=== PATIENT | female | born 2000 | race Caucasian/White ===

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

== ENCOUNTER 2022-06-07 10:50 | Outpatient (CLI) | payer MEDICAID, SELFPAY ==
[2022-06-07 11:00] VITALS: BMI 41.1
[2022-06-07 11:06] VITALS: BP 110/67; PULSE 116
[2022-06-07 11:21] VITALS: BP 103/58; PULSE 88
[2022-06-07 11:36] VITALS: BP 128/58; PULSE 93
[2022-06-07 11:51] VITALS: BP 111/59; PULSE 84
[2022-06-07 12:25] VITALS: BP 111/59; PULSE 84; RESP 18
== END 2022-06-07 12:20 | disposition home or self-care (01) ==
LOC: OPOB 10:51 → OBGYN 10:52
PROVIDERS: PCP Family Medicine; Visit Provider Family Medicine
DX: O26.899 Other specified pregnancy related conditions, unspecified trimester (principal); Z3A.00 Weeks of gestation of pregnancy not specified
CPT/HCPCS: 59025; 99211

== ENCOUNTER 2022-06-24 04:21 | Inpatient (IN) | payer MEDICAID, SELFPAY ==
[2022-06-24] VITALS (108 sets, daily range): BP systolic 89–134; BP diastolic 44–79; PULSE 73–120; RESP 16–20; TEMP 35.8–38.3; O2SAT 88–100; BMI 41.5
[2022-06-24] MEDS: lactated ringers 1,000 ML 999 ML IV ×2 (04:16→05:57)
[2022-06-24] MEDS: fentaNYL 50 mcg/mL INJ 2mL IVP (04:18)
[2022-06-24 04:36] LABS: Basophils % 0.2 %; Eosinophils # 0.1 10^3/uL (0.0-0.8); Eosinophils % 0.8 %; Hematocrit 37.2 % (37.0-47.0); Hemoglobin 12.4 g/dL (11.5-15.3); Lymphocytes # 2.2 10^3/uL (1.5-6.5); Lymphocytes % 16.8 %; Mean Corpuscular HGB Conc 33.3 g/dL (30.0-36.0); Mean Corpuscular Volume 87.1 fl (81-99); Mean Platelet Volume 10.9 fL (7.4-10.4); Monocytes # 1.1 10^3/uL (0.2-0.9); Monocytes % 8.5 %; Neutrophils # 9.45 10^3/uL (1.8-8.0); Neutrophils % 73.1 %; Nucleated Red Blood Cells % 0 %; Platelet Count 204 10^3/cmm (130-400); Red Blood Count 4.27 10^6/uL (4.1-5.3); White Blood Count 12.9 10^3/uL (4.5-13.0)
[2022-06-24] MEDS: vancomycin 1,500 MG/300 ML PIGGYBACK 150 MG IV (04:38)
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
--- NOTE | 2022-06-24 06:01 | ANES.PROC ---
Anesthesia Procedures Procedure/Date: 06/24/22 Epidural: Time Out Performed: Yes Consents Signed: Procedure Consent and NPO Consent Consent: requested by attending/covering physician, from patient, risks and benefits reviewed and patient agrees to proceed Lumbar Level: L3-L4 Epidural position: sitting Epidural procedure: sterile prep of area (betadine), 1% lidocaine to numb the area (3ml), 18 g needle, negative for paresthesia passed, neg for paresthesia, test dose given (2% lidocaine PF with epi 1:200,000 PF 3ml neg and 2ml given), 0.2% Ropivacaine bolus ml (5ml), placed PCEA, no systemic response, sterile dressing applied, L.U.D. no apparent complications and 0.2% Ropiavacaine @ mls/hr (13ml/hr)
[2022-06-24] MEDS: dextrose 5%-lactated ringers 1,000 ML 125 ML IV (06:15)
[2022-06-24] MEDS: hyDROXYzine 25 mg Capsule 50 MG PO (06:20)
[2022-06-24] MEDS: ondansetron 2 mg/ML SDV 2 mL 4 MG IVP (06:38)
--- NOTE | 2022-06-24 12:34 | PM.OPHPUD ---
Labor & Delivery H&P Update Date of Procedure: June 24, 2022 Date H&P Performed: 06/22/22 Admission Diagnosis: 21-year-old 2 para 0-0-1-0 at 37 weeks estimated gestational age presenting in active labor Preop diagnosis: labor Planned procedure: Spontaneous vaginal delivery Other information: The patient's was remarkable for starting her care at the [facility] in [place]. Her lab work was remarkable for having B+ blood with antibody screen to be negative her infectious disease panel was notable for being positive for chlamydia. She was tested for cure and found to be negative at 36 weeks. Her glucose screen was 132. A 3-hour glucose screen was negative. She was GBS positive. Due to her being penicillin allergic she was tested found to be chlamydia resistant. vancomycin was used for prophylaxis. She been having contractions the day prior to arriving at the hospital. They became more severe through the night and she elected to have the hospital for further evaluation. She was found to be 5 m dilated.
--- NOTE | 2022-06-24 12:39 | P.PCNOB_ITS ---
Delivery Note: Date of delivery: June 24, 2022 Pre-delivery diagnoses: 1. 21-year-old 2 para 0-0-1-0 2. GBS positive 3. Chlamydia positive during . Tested negative at 36 weeks Post- delivery diagnoses: Status post spontaneous vaginal delivery Procedure: Spontaneous vaginal delivery Delivering Physician: Trent Pitts Estimated blood loss (mL): 100 Pre-Delivery Course: The patient presented to the hospital in active labor. Was placed on GBS prophylaxis with vancomycin. An epidural was placed. Amniotomy was performed. She progressed to complete without difficulty Delivery: DELIVERY: The patient progressed to complete without difficulty. She delivered a male with a weight of 7 pounds 9 ounces with Apgars of 10, 10. The baby was delivered from the JACKELINE position and placed on the mother's abdomen. The cord was then clamped and cut 1 minute after delivery. There was no nuchal cord. There was no meconium. The placenta and 3 vessel cord were delivered intact shortly thereafter. The perineum and vaginal vault were carefully examined. Superficial lacerations were noted that did not require repair.. Both the mother and the baby were in stable condition. Post-Delivery Status: Good History History History 1 Term Miscarriages/Ectopic Living Children A&P Assessment and plan (1) 37 weeks gestation of : I Anticipate routine care. Status: Acute (2) Spontaneous vaginal delivery: Status: Acute (3) Positive GBS test: Status: Acute Coding Level of Care Code Acute Thermodynamics Teacher for Chg Fwd Diagnoses 37 weeks gestation of Z3A.37 Spontaneous vaginal delivery O80 Positive GBS test B95.1
[2022-06-24] MEDS: oxytocin 30 UNIT/500 ML BAG 999 UNIT IV (13:00)
[2022-06-24] MEDS: lanolin oint 7 gm 1 APPLIC TOPICAL (14:11)
[2022-06-24] MEDS: ibuprofen 800 mg tablet PO ×2 (14:11→20:56)
[2022-06-24] MEDS: benzocaine-menthol 78 gm Canister 1 SPRAY TOPICAL (14:13)
[2022-06-25 00:24] LABS: Hematocrit 32.6 % (37.0-47.0); Mean Corpuscular HGB Conc 33.7 g/dL (30.0-36.0); Mean Corpuscular Hemoglobin 28.6 pg (28.0-34.0); Mean Corpuscular Volume 84.9 fl (81-99); Mean Platelet Volume 10.9 fL (7.4-10.4); Platelet Count 199 10^3/cmm (130-400); Red Blood Count 3.84 10^6/uL (4.1-5.3); Red Cell Distribution Width 12.9 % (12.1-15.1); White Blood Count 13.5 10^3/uL (4.5-13.0)
[2022-06-25 00:47] VITALS: BP 108/74; PULSE 85; RESP 17
[2022-06-25 04:46] VITALS: BP 100/59; PULSE 79; RESP 18; TEMP 36.8; O2SAT 99
[2022-06-25] MEDS: ibuprofen 800 mg tablet PO (08:45)
[2022-06-25] MEDS: prenatal vitamin Capsule 1 CAP PO (08:45)
[2022-06-25] MEDS: docusate sodium 100 mg Capsule PO (08:45)
--- NOTE | 2022-06-25 09:49 | P.DS_ITS ---
Discharge Providers SURVEYING TECHNICIAN Date of Admission: 06/24/22 04:21 Date of Discharge: 06/25/22 Attending Provider at Admission: Trent Pitts MD Attending Provider at Discharge: Trent Pitts MD Primary Care Provider: Trent Pitts Diagnoses at Discharge Discharge Diagnosis (1) 37 weeks gestation of : Status: Acute (2) Spontaneous vaginal delivery: Status: Acute (3) Positive GBS test: Status: Acute Reason for Visit Reason for Visit: CONTRACTIONS Hospital Course Hospital Course The patient presented to the hospital in active labor. An epidural was placed. An amniotomy was performed. The patient progressed to complete. She had an unremarkable delivery. Her course was unremarkable. Her bleeding was within normal limits. Her pain was well controlled. She breast-fed well. Information Peripartum Data: Delivery Method: Vaginal Physical Exam Narrative: The patient is alert. She appears comfortable. Her heart has a regular rate and rhythm with no murmurs appreciated. Lungs are clear to auscultation bilaterally. Her fundus is firm and below the umbilicus. Urinary Catheter Management: [place]: Cath Placed During This Visit: yes Urinary Catheter Date of Insertion: 06/24/22 Urinary Catheter Time of Insertion: 06:45 History History History 1 Term Miscarriages/Ectopic Living Children Discharge Data Studies Completed and Pending Laboratory Results WBC 13.5 10^3/uL (4.5-13.0) H 06/25/22 00:15 RBC 3.84 10^6/uL (4.1-5.3) L 06/25/22 00:15 Hgb 11.0 g/dL (11.5-15.3) L 06/25/22 00:15 Hct 32.6 % (37.0-47.0) L 06/25/22 00:15 MCV 84.9 fl (81-99) 06/25/22 00:15 MCH 28.6 pg (28.0-34.0) 06/25/22 00:15 MCHC 33.7 g/dL (30.0-36.0) 06/25/22 00:15 RDW 12.9 % (12.1-15.1) 06/25/22 00:15 Plt Count 199 10^3/cmm (130-400) 06/25/22 00:15 MPV 10.9 fL (7.4-10.4) H 06/25/22 00:15 Neut % (Auto) 73.1 % 06/24/22 04:15 Lymph % (Auto) 16.8 % 06/24/22 04:15 [place] % (Auto) 8.5 % 06/24/22 04:15 Eos % (Auto) 0.8 % 06/24/22 04:15 Baso % (Auto) 0.2 % 06/24/22 04:15 Neut # (Auto) 9.45 10^3/uL (1.8-8.0) H 06/24/22 04:15 Lymph # (Auto) 2.2 10^3/uL (1.5-6.5) 06/24/22 04:15 [place] # (Auto) 1.1 10^3/uL (0.2-0.9) H 06/24/22 04:15 Eos # (Auto) 0.1 10^3/uL (0.0-0.8) 06/24/22 04:15 Baso # (Auto) 0.0 10^3/uL (0.0-0.1) 06/24/22 04:15 Nucleated RBC % (auto) 0 % 06/24/22 04:15 Nucleated RBCs # 0.0 /100WBC 06/24/22 04:15 Vitals Last Vital Signs Temp 98.3 F 06/25/22 04:46 Pulse 79 06/25/22 04:46 Resp 18 06/25/22 04:46 BP 100/59 06/25/22 04:46 Pulse Ox 99 06/25/22 04:46 O2 Del Method 06/25/22 04:46 Discharge Plan Discharge Patient Disposition: Home Condition: Stable Prescriptions: New ibuprofen 800 mg Tablet 800 mg PO TID Qty: 45 0RF Continued prenat.vits,guru,ujf-xnwk-kxygm Tablet 1 tab PO DAILY Discontinued hydroxyzine HCl 50 mg tablet 50 mg PO DAILY PRN doxycycline hyclate 100 mg tablet 100 mg PO BID Qty: 28 0RF promethazine 25 mg suppository 25 mg NM Q6H PRN (Reason: nausea and vomiting) Qty: 10 0RF Rx Instructions: Use one suppository every 6 hours as needed for nausea and vomiting metoclopramide HCl [Reglan] 10 mg tablet 10 mg PO Q6H PRN (Reason: nausea and vomiting) Qty: 120 0RF Rx Instructions: Take 1 tablet before meals and at bedtime Discharge Orders: Discharge Order (Routine); Ordered 06/25/22 Ordered By: Trent Pitts Referrals: Trent Pitts MD [Physician] - 6 Weeks Discharge Diet: Advance as tolerated Discharge Activity: Limit activity as instructed Patient Instructions: Depression (DC), Bleeding (DC), Preeclampsia and Eclampsia After Delivery (GEN), OB Discharge Report, OB Food/Drug Interaction Guide, OB Care at Home, Opioid Safety, OB Vaginal Deliveries Discharge Attestations SURVEYING TECHNICIAN Time Spent in Discharge Care*: less than 30 min Coding Level of Care Code Acute Marine Habitat Resource Specialist for Chg Fwd Diagnoses 37 weeks gestation of Z3A.37 Spontaneous vaginal delivery O80 Positive GBS test B95.1
[2022-06-25 10:00] VITALS: BP 100/65; PULSE 76; RESP 17; TEMP 36.8; O2SAT 96
--- NOTE | 2022-06-25 14:06 | ANE.PACU2 ---
Inpatient post-anesthesia follow up: Airway intact: Yes Vital signs: Temperature 98.2 F Pulse Rate 76 Respiratory Rate 17 Blood Pressure 100/65 Pulse Oximetry 96 Oxygen Delivery Me thod Room Air Oxygen Flow Rate Fraction of Inspir ed Oxygen Hydration adequate: Yes Nausea and vomiting: No Pain level: 1 Mental status: Baseline Additional Comments: EHR review
[2022-06-25 14:35] VITALS: BP 101/63; PULSE 71; RESP 18; TEMP 36.6; TEMP 36.7; O2SAT 98
[2022-06-25 14:56] VITALS: BP 101/63; PULSE 71; RESP 18; TEMP 36.7; O2SAT 98
== END 2022-06-25 14:40 | disposition home or self-care (01) | DRG 806 ==
LOC: OPOB 04:21 → OBGYN 04:21
PROVIDERS: Admitting Provider Family Medicine; PCP Family Medicine; Visit Provider Family Medicine
DX: O99.824 Streptococcus B carrier state complicating childbirth (principal); F33.9 Major depressive disorder, recurrent, unspecified; Z37.0 Single live birth; O99.344 Other mental disorders complicating childbirth; O99.214 Obesity complicating childbirth; Z3A.37 37 weeks gestation of pregnancy; F41.1 Generalized anxiety disorder; Z88.0 Allergy status to penicillin
CPT/HCPCS: 12345; 36415; 51702; 59025; 59409; 85025; 85027; 99211; J2405; J2795; J3010; J3370

== ENCOUNTER 2022-10-17 05:31 | Day surgery (SDC) | payer MEDICAID, SELFPAY ==
[2022-10-17] VITALS (10 sets, daily range): BP systolic 97–133; BP diastolic 63–92; PULSE 52–78; RESP 16–20; TEMP 36.1–36.4; O2SAT 94–100
--- NOTE | 2022-10-17 06:10 | W.PM.OPSUD ---
Surgery/Procedure H&P Update DATE OF PROCEDURE: October 17, 2022 DATE H&P PERFORMED: 09/20/22 H&P UPDATE INFORMATION: I have reviewed H&P completed within last 30 days, I have examined patient prior to procedure and Changes to prior documentation as noted here (Patient has been focusing on higher protein lower fat content) CHANGES TO PREVIOUS DOCUMENTATION: And is down to 220 pounds PREOP DIAGNOSIS: Symptomatic cholelithiasis PRIMARY INDICATION FOR PROCEDURE: Symptomatic cholelithiasis PLANNED PROCEDURE: Operation Date: 10/17/22 07:00 Proposed Procedures p Laparoscopic Cholecystectomy 21027,K82.9(Not Applicable) - Philipp Lam MD
[2022-10-17] MEDS: sodium chloride 0.9% 1,000 ML 30 ML IV (06:22)
[2022-10-17] MEDS: acetaminophen 1,000 MG/100 ML PIGGYBACK 400 MG IV (06:22)
[2022-10-17 06:25] LABS: OR HCG Qualitative Urine Negative (Negative)
[2022-10-17] MEDS: heparin 5,000 unit/mL INJ 1 mL 3000 UNIT SUBCUT (06:36)
[2022-10-17] MEDS: diphenhydrAMINE 50 mg/mL SDV 1mL 12.5 MG IVP (06:42)
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
[2022-10-17] MEDS: ciprofloxacin 400 MG/200 ML PREMIX 200 MG IV (07:00)
[2022-10-17] MEDS: lidocaine 1% INJ 20 mL SUBCUT (07:25)
--- NOTE | 2022-10-17 08:48 | PM.OP ---
Operative Report Date of procedure: October 17, 2022 Pre-op diagnosis: Preop Diagnosis Symptomatic cholelithiasis Post-op diagnosis: The same Procedure done: Laparoscopic cholecystectomy Specimens removed/disposition: Gallbladder and contents Surgeon: Philipp Lam MD Drencher: Surgical tena Borjas Circulating nurse Jackie Schroeder Anesthesia: General (quality improvement coordinator Brandon Oleary) Estimated blood loss (mL): 5 Procedure: Patient was identified in the holding area and taken back to the operative suite, placed in supine position intubated by anesthesia . Time-out was done verifying the patient's name/date of /planned procedure and destination after the procedure, all were in agreement. SCDs confirmed to be functioning, preoperative antibiotics administered per protocol, and beta chrissie protocol was confirmed. Patient was appropriately secured to the table, footboard was applied to the OR table, before prep and drape anesthesia was asked to tilt the table back and forth to make sure that the patient is appropriately secured and she was. Prep and drape of the abdomen was done under the usual sterile technique, followed by that supraumbilical skin incision,skin incision was done by a 15 blade knife, and stay sutures were applied to the fascia and Pearson trocar technique was used to enter the abdominal without injuring any abdominal viscera, started by low flow gas insufflation followed by a high flow, started with a 10 mm laparoscope and under direct vision. An additional 5 mm trocar was inserted under direct visualization. Gallbladder showed chronic cholecystitis and Fatty Liver On an attempt to position the patient, the bed did not respond and after many attempts we decided that a new bed will be brought to the room and the patient will be transferred to a newer bed.At This point gas was allowed to be deflate and the skin incisions were closed by skin nguyễn and sterile dressing was applied. Patient was then safely transferred to a new bed, reprep and drape was done under the usual sterile technique. Using the previous incisions Pearson trocar was introduced followed by epigastric 5 mm tipped balloon trocar. there was no evidence of any injuries, the scope then switched to a 30? ,10 millimeter scope and under direct visualization 5 millimeter trocar was inserted in the epigastric region followed by two 5 mm trocars were inserted in the right upper quadrant that was done after injection of local lidocaine 2% at all incision sites. patient was then positioned in the head up and tilted to the left. Ratcheted forceps were introduced into the lateral most 5mm port and was applied unto the fundus of the gallbladder cephalad and using Bullet forceps the infundibulum of the gallbladder was retracted laterally. Using [place] forceps then L-hook cautery to dissect the peritoneum overlying the Calot's triangle which was then opened medially and laterally until the cystic duct and the cystic artery were skeletonized. Dissection was carried along the body of the gallbladder and after ensuring critical view of safety was identfied. Cystic duct and cystic artery where seen connected to the gallbladder. Clips were applied on the cystic duct towards the common bile duct 1 towards the gallbladder then divided is in sharp scissors, 2 clips were then applied onto the cystic artery and 1 towards the gallbladder and divided by sharp scissors. Dissection was then carried along of the gallbladder from the gallbladder fossa using cautery as well as sharp dissection with heat energy. The gallbladder then was dissected out from the gallbladder fossa totally , cholecystectomy was then achieved and was placed in an Endo Catch bag and then retrieved from the Pearson trocar site under direct visualization using a 5 mm 30? scope through the epigastric trocar, specimen was then passed to the circulating nurse to go for permanent pathology,irrigation and hemostasis was done to the gallbladder fossa after hemostasis was secured, final survey laparoscopy was done that showed no injuries. Suction irrigation was obtained The supraumbilical fascial defect was then closed using interrupted number one PDS sutures using a fascial closure device ;Ian Chris under direct visualization following that Gas was allowed to deflate,Trocars were then taken out under direct vision there was no evidence of bleeding. Specimen was passed to the circulating nurse for permanent pathology. No drains were placed and the supraumbilical incision as well as all trocar sites were closed by 3/0 Vicryl followed by skin nguyễn to approximate the skin edges of the incisions , dressing was applied in the form of surical glue and the patient patient got extubated and was taken to recovery area in a stable condition. Count of sponges,needles and instruments were completed at the end of the procedure I was present for the whole entire procedure.
[2022-10-17] MEDS: fentaNYL 50 mcg/mL INJ 2mL IVP ×2 (09:19→09:25)
[2022-10-17] MEDS: ondansetron 2 mg/ML SDV 2 mL 4 MG IVP (09:19)
[2022-10-17] MEDS: HYDROcodone-acetaminophen 5-325 mg Tablet 1 TAB PO (09:45)
--- NOTE | 2022-10-17 16:22 | ANE.PACU2 ---
Inpatient post-anesthesia follow up: Airway intact: Yes Vital signs: Temperature 97.4 F Pulse Rate 64 Respiratory Rate 18 Blood Pressure 123/71 Pulse Oximetry 95 Oxygen Delivery Me thod Room Air Oxygen Flow Rate 7 Fraction of Inspir ed Oxygen Hydration adequate: Yes Nausea and vomiting: No Pain level: 1 Mental status: Baseline
== END 2022-10-17 11:05 | disposition home or self-care (01) ==
PROVIDERS: Anesthesiology; PCP Family Medicine; Visit Provider Surgery
PROC: 0FT44ZZ Resection of Gallbladder, Percutaneous Endoscopic Approach (ICD-10-PCS; CPT 47562; principal; 2022-10-17 07:00)
DX: K81.1 Chronic cholecystitis (principal); K76.0 Fatty (change of) liver, not elsewhere classified; E66.01 Morbid (severe) obesity due to excess calories; Z68.38 Body mass index [BMI] 38.0-38.9, adult; F41.1 Generalized anxiety disorder
CPT/HCPCS: 47562; 81025; 84703; 88304; J0131; J0744; J1100; J1170; J1200; J1644; J2405; J2704; J2710; J3010; J3490; J7030

== ENCOUNTER 2023-11-22 15:51 | Outpatient (CLI) | payer MEDICAID, SELFPAY ==
[2023-11-22 15:51] VITALS: BMI 38.4
[2023-11-22 16:05] VITALS: BP 103/68; PULSE 90
[2023-11-22 16:15] VITALS: RESP 17
[2023-11-22] MEDS: ondansetron 4 MG Tablet PO (16:34)
[2023-11-22 17:15] LABS: Urine Appearance Hazy (CLEAR); Urine Color Straw (Yellow); pH Urine 6.5 (5-7)
[2023-11-22 17:16] LABS: Bilirubin Urine Neg (Negative); Blood Urine Neg (Negative); Glucose Urine UA Norm (Normal); Ketones Urine Negative (Negative); Leukocyte Esterase Urine Negative (Negative); Nitrate Urine Negative (Negative); Protein Urine Neg (Negative); Urobilinogen Urine Norm (Negative)
[2023-11-22 17:25] LABS: Add Urine Culture? No; Bacteria Urine TRACE /hpf; WBC Urine 0-4 /hpf (0-5)
[2023-11-22] MEDS: lactated ringers 1,000 ML 999 ML IV (17:49)
[2023-11-22] MEDS: promethazine 25 mg/mL SDV 1 mL IM (18:26)
[2023-11-22] MEDS: HYDROcodone-acetaminophen 5-325 mg Tablet 1 TAB PO (19:47)
--- NOTE | 2023-11-22 20:15 | PC.NURSE ---
Pt previously rating abdominal cramping pain 10/10.
[2023-11-22 21:00] VITALS: BP 105/70; PULSE 90; RESP 16
== END 2023-11-22 21:06 | disposition home or self-care (01) ==
LOC: OPOB 15:52 → OBGYN 15:53
PROVIDERS: PCP Family Medicine; Visit Provider Family Medicine
DX: O21.9 Vomiting of pregnancy, unspecified (principal); Z3A.00 Weeks of gestation of pregnancy not specified; R19.7 Diarrhea, unspecified
CPT/HCPCS: 36415; 81001; 96372; 99211; J2550; J7120; Q0162

== ENCOUNTER 2024-01-31 12:55 | Outpatient (CLI) | payer MEDICAID, SELFPAY ==
[2023-11-22 21:00] VITALS: PULSE 90; RESP 16
[2024-01-31 12:50] VITALS: BMI 31.0
[2024-01-31 13:04] VITALS: BP 109/66; PULSE 94
[2024-01-31 13:17] LABS: Add Urine Microscopic? NO; Charge for UA Resulting for Rev
[2024-01-31 13:19] VITALS: BP 108/66; PULSE 86
[2024-01-31 13:21] LABS: Bilirubin Urine Neg (Negative); Blood Urine Neg (Negative); Glucose Urine UA Norm (Normal); Ketones Urine Negative (Negative); Leukocyte Esterase Urine Negative (Negative); Nitrate Urine Negative (Negative); Protein Urine Neg (Negative); Specific Gravity, Urine 1.015 (1.005-1.030); Urine Appearance Clear (CLEAR); Urine Color Yellow (Yellow); Urobilinogen Urine Norm (Negative); pH Urine 6 (5-7)
[2024-01-31 13:31] LABS: Basophils % 0.2 %; Eosinophils # 0.1 10^3/uL (0.0-0.8); Hematocrit 33.7 % (36-47); Lymphocytes # 2.1 10^3/uL (0.8-4.8); Mean Corpuscular HGB Conc 33.8 g/dL (30-55); Mean Corpuscular Hemoglobin 28.9 pg (27-33); Mean Corpuscular Volume 85.3 fl (85-98); Mean Platelet Volume 10.2 fL (7.4-10.4); Monocytes # 0.8 10^3/uL (0.2-0.9); Monocytes % 7.3 %; Neutrophils # 8.33 10^3/uL (1.8-7.7); Neutrophils % 72.8 %; Nucleated Red Blood Cells % 0 %; Platelet Count 234 10^3/cmm (157-399); Red Blood Count 3.95 10^6/uL (3.85-5.65); Red Cell Distribution Width 12.8 % (12.1-15.1); White Blood Count 11.42 10^3/uL (3.29-11.43)
--- NOTE | 2024-01-31 13:35 | PC.NURSE ---
this nurse and Axel HERNANDEZ transferred pt via wheelchair to ER, pt AAOx 3
[2024-01-31 13:51] LABS: Alanine Aminotransferase < 5 U/L (0-33); Albumin Level 3.3 g/dL (3.5-5.2); Alkaline Phosphatase 134 U/L (35-105); Anion Gap 17.2 (5-19); Aspartate Amino Transferase 10 U/L (0-32); Blood Urea Nitrogen 5 mg/dL (6-20); Calcium 8.5 mg/dL (8.5-10.5); Carbon Dioxide 20 mmol/L (22-29); Chloride 104 mmol/L (98-107); Globulin 3.2 g/dL (1.3-4.6); Glomerular Filtration Rate 201.5 mL/min (90-130); Glucose 91 mg/dL (65-115); Osmolality Calculated 281 mOsm/kg (285-295); Potassium 4.2 mmol/L (3.5-5.1); Sodium 137 mmol/L (136-145); Total Bilirubin 0.2 mg/dL (0.15-1.2); Total Protein 6.5 g/dL (6.6-8.7); Uric Acid 3.5 mg/dL (2.4-5.7)
[2024-01-31 13:52] LABS: Lactate (Lactic Acid level) 0.8 mmol/L (0.5-2.2)
[2024-01-31 14:35] LABS: Urine Creatinine 29 mg/dL (28-217); Urine Protein Random 4 mg/dL
[2024-01-31 14:36] LABS: UPRO/UCREAT Ratio 0.14 mg/mg CR
== END 2024-01-31 13:35 ==
LOC: OPOB 12:56 → OBGYN 12:57 → OPOB 13:35 → OBGYN 16:31
PROVIDERS: PCP Family Medicine; Visit Provider Family Medicine
DX: O26.899 Other specified pregnancy related conditions, unspecified trimester (principal); Z3A.00 Weeks of gestation of pregnancy not specified; H54.7 Unspecified visual loss; R20.0 Anesthesia of skin
CPT/HCPCS: 36415; 59025; 80053; 81003; 82570; 83605; 84156; 84550; 85025; 99211

== ENCOUNTER 2024-01-31 13:37 | Emergency (ER) | payer MEDICAID, SELFPAY ==
[2024-01-31 13:40] VITALS: BP 107/62; PULSE 89; RESP 18; TEMP 36.9; O2SAT 97; BMI 31.0
--- NOTE | 2024-01-31 13:45 | XRR_ITS ---
PROCEDURE INFORMATION: Exam: XR Chest Exam date and time: 01/31/2024 2:14 PM Age: 23 years old Clinical indication: Shortness of breath; Additional info: CVA TECHNIQUE: Imaging protocol: Radiologic exam of the chest. Views: 1 view. COMPARISON: CR XR chest 1V portable [id number] 07/15/2021 8:10 AM FINDINGS: Lungs: Mild prominence of markings around the hilar region, particularly right infrahilar region. No consolidation. Pleural spaces: No pleural effusion or pneumothorax. Heart/Mediastinum: Mild accentuation of cardiomediastinal contours with AP portable technique, with borderline cardiac size. Compared with 2020 exam, cardiac silhouette and particularly left side appears more prominent, as do markings around the hilar region. Bones/joints: Visualized osseous structures show no acute abnormality. XR/XR chest 1V portable [id number] IMPRESSION: 1. Borderline cardiac size. 2. Mild increased markings around the hilar region, and particularly right infrahilar region. This could be associated with mild perihilar/infrahilar infiltrate or mild central vascular congestion. Remainder of the lungs are clear. No consolidation or effusion.
--- NOTE | 2024-01-31 13:46 | CT_ITS ---
WS: [id number] CT HEAD NONCONTRAST HISTORY: Symptoms of acute stroke TECHNIQUE: Contiguous axial imaging performed through the brain in 2.5 mm imaging. Bone and soft tiss ue windows. Sagittal and coronal reformats reviewed. All CT scans at [facility] use at least one of these dose optimization techniques: automated exposure control; mA and/or kV adjustment per pa tient size (includes targeted exams where dose is matched to clinical indication); or iterative recon struction. DLP: 914.38 mGy COMPARISON: 03/19/2020 No acute intracranial hemorrhage, midline shift or mass effect. No atrophy or prior infarcts or herniation. Ventricles: Normal size with no hydrocephalus. Paranasal sinuses: As visualized are clear. Mastoid air cells: Well pneumatized. Calvarium and scalp: Skull is intact with no soft tissue edema or swelling. IMPRESSION: Negative head CT. Notified Cande Chiang MD at 01/31/2024 2:04 PM.
--- NOTE | 2024-01-31 13:49 | ECG_ITS ---
[facility] Test Date: 2024-01-31 Pat Name: Fouzia Arriaga Department: Room: Gender: Female [employer]: : 2000 Requested By: Cande Chiang Order Number: [id number] Sam MD: Kyle Hebert M.D. Measurements Intervals Tutor Key Rate: 85 P: 15 VT: 147 QRS: 5 QRSD: 92 T: 9 QT: 372 QTc: 443 Interpretive Statements SINUS RHYTHM No previous ECG available for comparison Electronically Signed On 01-31-2024 15:20:35 CDT by Kyle Hebert M.D. [id number]
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
[2024-01-31 14:15] LABS: INR 0.97 (0.8-1.2); Partial Thromboplastin Time 25.2 SECONDS (23.9-36.7)
--- NOTE | 2024-01-31 14:15 | MR_ITS ---
WS: [id number] MR VENOGRAPHY HEAD WITHOUT GADOLINIUM. INDICATION: Vision changes. TECHNIQUE: MRV without gadolinium enhancement with 2D and 3D aesi-kn-ybvjkn technique. Maximum intens ity projection images. FINDINGS: Distal jugular veins are patent. Sigmoid sinus and transverse sinuses are patent. Straight sinus is normal in appearance. Normal sagittal sinus. Normal internal cerebral veins. No evidence of dural sinus thrombosis. IMPRESSION: Normal MRV. No evidence of dural sinus thrombosis.
--- NOTE | 2024-01-31 14:15 | MR_ITS ---
WS: [id number] MRI HEAD WITHOUT CONTRAST TECHNIQUE: Sagittal T1, T2 axial, T2 axial FLAIR, axial and coronal T1 images, axial susceptibility w eighted imaging, axial diffusion weighted images, and coronal T2 images were obtained. CLINICAL INFORMATION: vision change COMPARISON: CT 01/31/2024 FINDINGS: No evidence of restricted diffusion to suggest acute ischemia. Ventricular system and basilar cistern s are patent. No suspicious intracranial signal abnormalities. Normal guillory-white differentiation. Nor mal posterior fossa. Normal vascular flow voids at the skull base. No extra-axial fluid collections. Paranasal sinuses and mastoid air cells are well aerated. Normal posterior nasopharynx. No hemosideri n on the susceptibly weighted images. Normal optic chiasm and pituitary infundibulum. Temporal lobes and hippocampal formations are normal in appearance. Normal cavernous sinuses. IMPRESSION: 1. No acute intracranial findings 2. No evidence of restricted diffusion to suggest acute ischemia. 3. No suspicious intracranial signal abnormalities. 4. Normal optic chiasm and pituitary infundibulum. 5. No hemosiderin on the susceptibly weighted images.
--- NOTE | 2024-01-31 14:16 | MR_ITS ---
WS: [id number] MRA HEAD TECHNIQUE: Axial 3-D TOF images obtained with axial images and axial, sagittal, and coronal 2-D refor matted images. CLINICAL INFORMATION: vision change COMPARISON: None. FINDINGS: Distal vertebral arteries are patent. Basilar artery is patent. Normal vascularity to the F[employer] GL[employer] WORKER territo ry bilaterally. Patent RIGHT posterior communicating artery. Both ICAs are patent at the skull base. Small RIGHT A1 segment. Normal vascularity to the OLEKSANDR and MCA territories bilaterally. No evidence of proximal high-grade flow-limiting stenosis or aneurysm. IMPRESSION: 1. No evidence of proximal high-grade flow-limiting stenosis or aneurysm. 2. Normal intracranial MRA.
[2024-01-31] MEDS: tetracaine 0.5% Op Soln 4 mL Btl 1 DROP EYE-RIGHT (14:20)
--- NOTE | 2024-01-31 14:41 | PM.SAN ---
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 She was working at 10:00 this morning when she noticed that her vision was blurred in the left eye more than the right. Her symptoms continue to develop and she noticed that her eyes felt a sense of pressure, again on the left more than the right. It was arranged for her to see Dr. Cobb urgently but then she developed tingling in both of her hands and numbness around her mouth so she was sent to the ED and stroke alert was activated. I called immediately and talked with Dr. Chiang and came for consultation. The patient reports that she cannot see anything in the left side of her vision in the left eye only. She is not fully blind in the right eye but has blurred vision throughout on the right. When she looks with the left eye only the right half of the world appears yellow. Her vision is also blurred in the right eye. Dr. Chiang is in the process of checking her intraocular pressure with tonometer. She is 37 weeks of gestation with a healthy son. Her blood pressure was a little elevated this morning around 140 systolic. She had hyper emesis gravidarum with her previous several years ago. She normally does not have headaches. On examination of her visual olvera she does not see the left side with her left eye only. This is upper and lower quadrant. From the macula to the right everything looks good yellow in the left eye. On the right side she is able to count fingers and identify a red stimulus throughout. PERRLA Funduscopic exam reveals no weems red spot. I got a good look at the macula in the left eye. Vasculature appears unremarkable on a nondilated exam. She has full eye movements. The rest of her neurologic exam is normal including gait. She was able to march at the bedside. Reflexes intact. My initial concern was for central retinal artery occlusion because of her profound visual loss in the left eye but I do not at this time see evidence of either a branch or retinal artery occlusion. We are beyond the 4-1/2-hour window for thrombolysis and she has some improvement of vision the left eye as she reports it is getting better over time so I do not think it would be treatment, in consideration of her . I am concerned about central retinal vein occlusion and talked with Dr. Chiang. We are scheduling her for stat MRI brain with MR venogram and MRA [id number]. Gadolinium is contraindicated because of her unless absolutely necessary. The patient continued through MR venogram and MRI brain and those were negative. By that time she had developed fairly severe headache and her vision started to improve. By the time she left the emergency department her vision was nearly back to normal. Stroke Alert Activated by: Triage/Dr. Anaya Stroke Alert Activation Date: 01/31/24 Stroke Alert Activation Time: 13:47 Stroke MD @ Bedside Date: 01/31/24 Stroke MD @ Bedside Time: 13:50 NIH Stroke Scale Time: 13:55 NIH stroke score NIHSS: Level Of Consciousness - 1a: 0 Level Of Consciousness Questions - 1b: Both Correct Level Of Consciousness Commands - 1c: Both Correct Best Gaze - 2: Normal Visual Olvera - 3: Partial Hemianopia Facial Palsy - 4: Normal Motor Arm Right - 5: No Drift Motor Arm Left - 5: No Drift Motor Leg Right - 6: No Drift Motor Leg Left - 6: No Drift Limb Ataxia - 7: Absent Sensory - 8: Normal Best Language - 9: No Aphasia Dysarthia - 10: Normal Extinction And Inattention - 11: 0 Score: Total Score: 1 Stroke Alert Data/Treatment CT Results Time: 13:57 CT Impression: Normal CAT scan head with no change compared with 03/19/2020 Stroke Risk Factors: hypertension (Her only risk factor is ) tPA Contraindication: tPA Contraindication: Treatment not indcated tPA Admin Prior to Arrival: No Patient & Family Educated on: Cause of Stroke and Treament Plan Other Information: I think this was migraine with aura. Initial concern was for retinal artery occlusion on the left but her symptoms were bilateral and also then began to include some sensory symptoms in both hands, suggesting a more diffuse process and her headache developed over the course of her stay and her stat imaging studies. There was no sign of central venous thrombosis. Critical Care Time Critical Care Time: 30 - 74 mins A&P Assessment and plan (1) Migraine with aura and with status migrainosus: This 23-year-old woman with risk factor for stroke consisting of presented with visual loss in the left eye primarily, of concern for retinal artery occlusion but her visual loss was incomplete, there was no sign of weems red spot in her macula and her symptoms spread to include the right eye and then she developed sensory symptoms in both upper extremities. By then she began to experience headache. Although she had no previous history of migraine, there was a prior ER visit in 2019 when she complained of headache in the setting of previous . Finally after her imaging studies were negative for central venous thrombosis, it was possible to diagnose migraine with aura to explain her symptoms. She was improving by the time she left. I reviewed the patient's MRI studies including MRV, MRA and MRI brain. I continued to correspond with Dr. Chiang throughout the patient's stay and agreed to see her in the clinic promptly. Qualifiers: Intractability: intractable Qualified Code(s): G43.111 - Migraine with aura, intractable, with status migrainosus (2) Acute blindness: Coding Level of Care Code Acute Code for [facility] Fwd Diagnoses Intractable migraine with aura with status migrainosus G43.111 Intractability: intractable Acute blindness H54.7
[2024-01-31] MEDS: metoclopramide 5 mg/mL SDV 2 mL 10 MG IVP (15:29)
[2024-01-31] MEDS: diphenhydrAMINE 50 mg/mL SDV 1mL IVP (15:31)
[2024-01-31 17:17] VITALS: BP 113/59; PULSE 76; O2SAT 99
--- NOTE | 2024-02-01 04:05 | DCPLANNER ---
Message sent to Neurology for a follow up on Headaches
== END 2024-01-31 17:22 | disposition home or self-care (01) ==
PROVIDERS: Emergency Provider Emergency Medicine; PCP Family Medicine
DX: R51.9 Headache, unspecified (principal)
CPT/HCPCS: 36415; 70450; 70544; 70551; 71045; 85610; 85730; 93005; 96374; 96375; 99285; J1200; J2765

== ENCOUNTER 2024-02-10 07:11 | Outpatient (CLI) | payer MEDICAID, SELFPAY ==
[2024-02-10] VITALS (11 sets, daily range): BP systolic 99–127; BP diastolic 55–66; PULSE 78–109; RESP 16; BMI 39.6
[2024-02-10] MEDS: promethazine 25 mg/mL SDV 1 mL IM (07:54)
[2024-02-10] MEDS: lactated ringers 1,000 ML 999 ML IV (07:58)
[2024-02-10 08:57] LABS: Bilirubin Urine 1+ (Negative); Blood Urine 2+ (Negative); Glucose Urine UA Norm (Normal); Ketones Urine 3+ (Negative); Leukocyte Esterase Urine 1+ (Negative); Nitrate Urine Negative (Negative); Protein Urine 1+ (Negative); Specific Gravity, Urine 1.025 (1.005-1.030); Urine Appearance Cloudy (CLEAR); Urine Color Yellow (Yellow); Urobilinogen Urine Norm (Negative); pH Urine 5 (5-7)
[2024-02-10 08:58] LABS: Add Urine Culture? No; Bacteria Urine 2+ /hpf; Squamous Epithelial Cell Urine 15-25 /hpf (0-5); WBC Urine 15-25 /hpf (0-5)
== END 2024-02-10 10:10 | disposition home or self-care (01) ==
LOC: OPOB 07:12 → OBGYN 07:12
PROVIDERS: PCP Family Medicine; Visit Provider Family Medicine
DX: O21.9 Vomiting of pregnancy, unspecified (principal); Z3A.00 Weeks of gestation of pregnancy not specified; R10.9 Unspecified abdominal pain; R19.7 Diarrhea, unspecified
CPT/HCPCS: 59025; 81001; 96372; 99211; J2550; J7120

== ENCOUNTER 2024-02-10 16:08 | Outpatient (CLI) | payer MEDICAID, SELFPAY ==
[2024-02-10 16:09] VITALS: RESP 16; BMI 39.6
[2024-02-10 17:00] VITALS: RESP 16
[2024-02-10] MEDS: lactated ringers 1,000 ML 999 ML IV (17:00)
[2024-02-10] MEDS: morphine 4 mg/mL SDV 1 mL IVP (17:00)
[2024-02-10 17:03] LABS: Basophils % 0.2 %; Eosinophils # 0.1 10^3/uL (0.0-0.8); Eosinophils % 0.8 %; Hematocrit 34.7 % (36-47); Lymphocytes # 1.2 10^3/uL (0.8-4.8); Lymphocytes % 13.3 %; Mean Corpuscular HGB Conc 33.1 g/dL (30-55); Mean Corpuscular Volume 84.6 fl (85-98); Mean Platelet Volume 9.8 fL (7.4-10.4); Monocytes % 11.5 %; Neutrophils % 73.4 %; Nucleated Red Blood Cells % 0 %; Platelet Count 237 10^3/cmm (157-399); Red Cell Distribution Width 12.9 % (12.1-15.1); White Blood Count 8.99 10^3/uL (3.29-11.43)
[2024-02-10 17:24] LABS: Add Urine Culture? No; Bacteria Urine 1+ /hpf; Bilirubin Urine 1+ (Negative); Blood Urine Neg (Negative); Glucose Urine UA Norm (Normal); Ketones Urine 2+ (Negative); Leukocyte Esterase Urine Trace (Negative); Mucus Urine 1+ /hpf; Nitrate Urine Negative (Negative); Protein Urine Trace (Negative); Specific Gravity, Urine 1.025 (1.005-1.030); Urine Appearance Clear (CLEAR); Urine Color Dark Yellow (Yellow); Urobilinogen Urine Norm (Negative); pH Urine 6 (5-7)
[2024-02-10 17:24] LABS: Alanine Aminotransferase 9 U/L (0-33); Albumin Level 3.4 g/dL (3.5-5.2); Alkaline Phosphatase 160 U/L (35-105); Anion Gap 16.5 (5-19); Aspartate Amino Transferase 15 U/L (0-32); Blood Urea Nitrogen 7 mg/dL (6-20); Calcium 8.6 mg/dL (8.5-10.5); Carbon Dioxide 19 mmol/L (22-29); Chloride 105 mmol/L (98-107); Globulin 2.9 g/dL (1.3-4.6); Glomerular Filtration Rate 201.5 mL/min (90-130); Glucose 75 mg/dL (65-115); Osmolality Calculated 281 mOsm/kg (285-295); Potassium 3.5 mmol/L (3.5-5.1); Sodium 137 mmol/L (136-145); Total Bilirubin 0.4 mg/dL (0.15-1.2); Total Protein 6.3 g/dL (6.6-8.7)
[2024-02-10 17:25] LABS: Creatinine Clr Calc Pharmacy 262.4702
[2024-02-10] MEDS: promethazine 25 mg/mL SDV 1 mL IM (17:48)
== END 2024-02-10 18:23 | disposition home or self-care (01) ==
LOC: OPOB 16:08 → OBGYN 18:13
PROVIDERS: PCP Family Medicine; Visit Provider Family Medicine
DX: O26.899 Other specified pregnancy related conditions, unspecified trimester (principal); Z3A.00 Weeks of gestation of pregnancy not specified; R10.9 Unspecified abdominal pain
CPT/HCPCS: 36415; 51702; 59025; 80053; 81001; 83986; 85025; 96372; 99211; J2270; J2550; J7120

== ENCOUNTER 2024-02-12 16:44 | Outpatient (CLI) | payer MEDICAID, SELFPAY ==
[2024-02-12] VITALS (14 sets, daily range): BP systolic 97–109; BP diastolic 54–70; PULSE 77–105; RESP 17; BMI 40.1
[2024-02-12] MEDS: lactated ringers 1,000 ML 999 ML IV ×2 (17:51→18:53)
[2024-02-12 18:09] LABS: Bilirubin Urine 1+ (Negative); Blood Urine 2+ (Negative); Glucose Urine UA Norm (Normal); Ketones Urine 1+ (Negative); Leukocyte Esterase Urine Trace (Negative); Nitrate Urine Negative (Negative); Protein Urine 1+ (Negative); Specific Gravity, Urine 1.025 (1.005-1.030); Urine Appearance Cloudy (CLEAR); Urine Color Dark Yellow (Yellow); Urobilinogen Urine Norm (Negative); pH Urine 6 (5-7)
[2024-02-12 18:19] LABS: RBC Urine 0-4 /hpf (0-2); Transitional Epi Cells Urine 0-4 /hpf
[2024-02-12 18:20] LABS: Add Urine Culture? No; Bacteria Urine TRACE /hpf; Mucus Urine 2+ /hpf; Oval Fat Bodies Urine 1+ /hpf
[2024-02-12 18:23] LABS: Alanine Aminotransferase 16 U/L (0-33); Albumin Level 3.9 g/dL (3.5-5.2); Alkaline Phosphatase 210 U/L (35-105); Anion Gap 16.2 (5-19); Aspartate Amino Transferase 19 U/L (0-32); Blood Urea Nitrogen 4 mg/dL (6-20); Calcium 9.3 mg/dL (8.5-10.5); Carbon Dioxide 19 mmol/L (22-29); Chloride 107 mmol/L (98-107); Creatinine Clr Calc Pharmacy 176.2548; Globulin 3.5 g/dL (1.3-4.6); Glomerular Filtration Rate 126.2 mL/min (90-130); Glucose 85 mg/dL (65-115); Osmolality Calculated 284 mOsm/kg (285-295); Potassium 3.2 mmol/L (3.5-5.1); Sodium 139 mmol/L (136-145); Total Bilirubin 0.4 mg/dL (0.15-1.2); Total Protein 7.4 g/dL (6.6-8.7)
[2024-02-12 18:26] LABS: Basophils % 0.3 %; Eosinophils # 0.1 10^3/uL (0.0-0.8); Eosinophils % 1.8 %; Hematocrit 41.9 % (36-47); Lymphocytes # 1.5 10^3/uL (0.8-4.8); Lymphocytes % 19.9 %; Mean Corpuscular HGB Conc 32.9 g/dL (30-55); Mean Corpuscular Hemoglobin 28.5 pg (27-33); Mean Corpuscular Volume 86.4 fl (85-98); Mean Platelet Volume 10.1 fL (7.4-10.4); Monocytes # 1.1 10^3/uL (0.2-0.9); Monocytes % 13.5 %; Neutrophils # 4.93 10^3/uL (1.8-7.7); Neutrophils % 63.6 %; Nucleated Red Blood Cells % 0 %; Platelet Count 297 10^3/cmm (157-399); Red Blood Count 4.85 10^6/uL (3.85-5.65); Red Cell Distribution Width 13.2 % (12.1-15.1); White Blood Count 7.75 10^3/uL (3.29-11.43)
[2024-02-12 18:56] LABS: Slide Review Slide Review Perform
[2024-02-15] LABS: Campylobacter Group NOT DETECTED (NOT DETECTED); Norovirus GI/GII NOT DETECTED (NOT DETECTED); Rotavirus A NOT DETECTED (NOT DETECTED); Shiga Toxin 1 NOT DETECTED (NOT DETECTED); Shigella Species NOT DETECTED (NOT DETECTED); Vibrio Group NOT DETECTED (NOT DETECTED); Yersinia Enterocolotica NOT DETECTED (NOT DETECTED)
== END 2024-02-12 20:46 | disposition home or self-care (01) ==
LOC: OPOB 16:52 → OBGYN 16:53
PROVIDERS: PCP Family Medicine; Visit Provider Family Medicine
DX: O26.899 Other specified pregnancy related conditions, unspecified trimester (principal); Z3A.00 Weeks of gestation of pregnancy not specified; N39.9 Disorder of urinary system, unspecified
CPT/HCPCS: 36415; 51702; 59025; 80053; 81001; 83630; 85025; 87210; 87506; 99211; J7120

== ENCOUNTER 2024-03-01 10:25 | Outpatient (CLI) | payer MEDICAID, SELFPAY ==
[2024-03-01 10:25] VITALS: BMI 41.3
[2024-03-01 10:34] VITALS: BP 109/58; PULSE 93; TEMP 35.8
[2024-03-01 10:47] LABS: Nitrazine Paper, PH Negative
== END 2024-03-01 11:12 | disposition home or self-care (01) ==
LOC: OPOB 10:28 → OBGYN 10:29
PROVIDERS: Absent Provider Family Medicine; Family Provider Family Medicine; PCP Family Medicine; Visit Provider Family Medicine
DX: O26.899 Other specified pregnancy related conditions, unspecified trimester (principal); Z3A.00 Weeks of gestation of pregnancy not specified; N89.8 Other specified noninflammatory disorders of vagina
CPT/HCPCS: 59025; 83986; 99211

== ENCOUNTER 2024-03-07 11:53 | Inpatient (IN) | payer MEDICAID, SELFPAY ==
[2024-03-07] VITALS (42 sets, daily range): BP systolic 98–132; BP diastolic 50–84; PULSE 69–100; RESP 16–18; TEMP 36.6–36.8; O2SAT 99–100; BMI 41.5
[2024-03-07] MEDS: lactated ringers 1,000 ML 999 ML IV ×2 (13:45→14:39)
[2024-03-07 14:22] LABS: Basophils % 0.2 %; Eosinophils # 0.1 10^3/uL (0.0-0.8); Eosinophils % 0.4 %; Hematocrit 35.6 % (36-47); Lymphocytes # 2.1 10^3/uL (0.8-4.8); Lymphocytes % 17.3 %; Mean Corpuscular HGB Conc 32.9 g/dL (30-55); Mean Corpuscular Hemoglobin 28.2 pg (27-33); Mean Corpuscular Volume 85.8 fl (85-98); Monocytes # 1.1 10^3/uL (0.2-0.9); Monocytes % 8.5 %; Neutrophils # 9.01 10^3/uL (1.8-7.7); Neutrophils % 73.3 %; Nucleated Red Blood Cells % 0 %; Platelet Count 250 10^3/cmm (157-399); Red Blood Count 4.15 10^6/uL (3.85-5.65); Red Cell Distribution Width 13.6 % (12.1-15.1)
[2024-03-07] MEDS: ROPivacaine syringe 100 MG/50 ML SYRINGE 13 MG EPIDURAL (14:37)
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
--- NOTE | 2024-03-07 14:47 | ANES.PROC ---
Anesthesia Procedures Procedure/Date: 03/07/24 Epidural: Time Out Performed: Yes Consents Signed: Procedure Consent Consent: from patient Lumbar Level: L3-L4 Epidural position: sitting Epidural procedure: sterile prep of area, 1% lidocaine to numb the area, 18 g needle, negative for paresthesia passed, neg for paresthesia, test dose given, 1.5% xylocaine 1:200k epi and 0.2% Ropiavacaine @ mls/hr (epidural infusion started at 13 ml per hour 5 mls q 15 as [employer])
--- NOTE | 2024-03-07 15:18 | PM.OPHPUD ---
Labor & Delivery H&P Update Date of Procedure: March 07, 2024 Date H&P Performed: 03/06/24 H&P update information: I have reviewed H&P completed within last 30 days Changes to previous documentation: The patient arrived to the hospital at 3 cm dilated with consistent contractions Admission Diagnosis: 23-year-old 2 para 1-0-0-1 at 37 weeks estimated gestational age presenting in active labor Planned procedure: Vaginal delivery Other information: The patient is a 23-year-old female who has had a relatively unremarkable . She was having some pain with nausea and vomiting several weeks ago. That was self-limited and has resolved. Her blood type was B+. She was rubella immune. She was GBS negative. She passed her glucose screen. The remainder of her infectious disease profile was within normal limits. Related Problem List Diagnoses (1) 37 weeks gestation of : A&P Assessment and plan (1) 37 weeks gestation of : I anticipate routine labor and delivery. Status: Acute
--- NOTE | 2024-03-07 15:59 | PM.DELIVERY ---
Delivery Note: Date of delivery: March 07, 2024 Pre-delivery diagnoses: 23-year-old 2 para 1-0-0-1 at 37 weeks estimated gestational age presenting in active labor Post-delivery diagnoses: Status post spontaneous vaginal delivery Procedure: Spontaneous vaginal delivery Delivering Physician: Trent Pitts Estimated blood loss (mL): 75 Pre-Delivery Course: The patient presented to the hospital in active labor. She gradually progressed with irregular contractions. An epidural was placed. An amniotomy was performed. She progressed to complete without difficulty. Delivery: DELIVERY: The patient progressed to complete without difficulty. She delivered a male with a weight of 8 pounds 0 ounces with Apgars of 8, 8. The baby was delivered from the JACKELINE position and placed on the mother's abdomen. The cord was then clamped and cut. There was no nuchal cord. There was no meconium. The placenta and 3 vessel cord were delivered intact shortly thereafter. The perineum and vaginal vault were carefully examined. No lacerations were noted. Both the mother and the baby were in stable condition. History History History 1 Term Miscarriages/Ectopic Living Children A&P Assessment and plan (1) 37 weeks gestation of : (2) Spontaneous vaginal delivery: I anticipate routine care. Coding Level of Care Code Acute Code for Chg Fwd Diagnoses 37 weeks gestation of Z3A.37 Spontaneous vaginal delivery O80
[2024-03-07] MEDS: benzocaine-menthol 78 gm Canister 1 SPRAY TOPICAL (19:50)
[2024-03-07] MEDS: ibuprofen 800 mg tablet PO (19:51)
[2024-03-07] MEDS: docusate sodium 100 mg Capsule PO (19:51)
[2024-03-07] MEDS: lanolin oint 7 gm 1 APPLIC TOPICAL (19:51)
[2024-03-08] VITALS: BP 114/71; PULSE 84; RESP 16
[2024-03-08 02:00] VITALS: BP 105/68; PULSE 79; RESP 16; TEMP 36.8
[2024-03-08 04:10] LABS: Hematocrit 32.9 % (36-47); Mean Corpuscular HGB Conc 33.1 g/dL (30-55); Mean Corpuscular Volume 84.6 fl (85-98); Mean Platelet Volume 10.4 fL (7.4-10.4); Platelet Count 205 10^3/cmm (157-399); Red Blood Count 3.89 10^6/uL (3.85-5.65); Red Cell Distribution Width 13.6 % (12.1-15.1); White Blood Count 11.96 10^3/uL (3.29-11.43)
--- NOTE | 2024-03-08 08:03 | ANE.PACU2 ---
Inpatient post-anesthesia follow up: Vital signs: Temperature 98.3 F Pulse Rate 79 Respiratory Rate 16 Blood Pressure 105/68 Pulse Oximetry 99 Oxygen Delivery Me thod Room Air Oxygen Flow Rate Fraction of Inspir ed Oxygen Hydration adequate: Yes Nausea and vomiting: No Pain level: 1 Mental status: Baseline Additional Comments: no apparent anesthetic complications noted Epidural Start/End: Epidural Start Date: 03/07/24 Epidural Start Time: 14:30 Epidural End Date: 03/07/24 Epidural End Time: 16:30
[2024-03-08] MEDS: PRENATAL VIT NO.130/IRON/FOLIC 1 EACH TABLET PO (09:25)
[2024-03-08] MEDS: ibuprofen 800 mg tablet PO ×2 (09:25→16:21)
[2024-03-08] MEDS: docusate sodium 100 mg Capsule PO (09:25)
[2024-03-08 09:50] VITALS: BP 113/70; PULSE 80; RESP 17; TEMP 36.7
--- NOTE | 2024-03-08 11:40 | PM.OBGYDC ---
Discharge Providers DEVELOPMENT TECHNICAL LEAD Date of Admission: 03/07/24 11:53 Date of Discharge: 03/08/24 Attending Provider at Admission: Trent Pitts MD Attending Provider at Discharge: Trent Pitts MD Primary Care Provider: Trent Pitts MD Diagnoses at Discharge Discharge Diagnosis (1) 37 weeks gestation of : Status: Acute (2) Spontaneous vaginal delivery: Status: Acute Reason for Visit Reason for Visit: CONTRACTIONS SINCE 0400 Hospital Course Hospital Course The patient presented to the hospital in active labor. Her membranes were intact. She received an epidural. An amniotomy was performed. She progressed to complete without difficulty. Her labor was unremarkable. Her course was also unremarkable. Her bleeding was within normal limits. Her course was also within normal limits. She breast-fed well. Her pain is been well-controlled. Her bleeding continued to be minimal. Information Peripartum Data: Infant Delivery Method: Vaginal Physical Exam Narrative: The patient is alert. She appears comfortable. Her heart has a regular rate and rhythm with no murmurs appreciated. Lungs are clear to auscultation bilaterally. Her fundus is firm and below the umbilicus. Urinary Catheter Management: [place]: Cath Placed During This Visit: yes, but has since been removed by the nurse Reason for Continuing Indwelling Catheter: Other Urinary Catheter Date of Insertion: 03/07/24 Urinary Catheter Time of Insertion: 14:45 Date Urinary Catheter Removed: 03/07/24 Time Urinary Catheter Discontinued: 15:31 History History History 1 Term Miscarriages/Ectopic Living Children Discharge Data Studies Completed and Pending Laboratory Results WBC 11.96 10^3/uL (3.29-11.43) H 03/08/24 04:05 RBC 3.89 10^6/uL (3.85-5.65) 03/08/24 04:05 Hgb 10.90 g/dL (11.27-16.99) L 03/08/24 04:05 Hct 32.9 % (36-47) L 03/08/24 04:05 MCV 84.6 fl (85-98) L 03/08/24 04:05 MCH 28.0 pg (27-33) 03/08/24 04:05 MCHC 33.1 g/dL (30-55) 03/08/24 04:05 RDW 13.6 % (12.1-15.1) 03/08/24 04:05 Plt Count 205 10^3/cmm (157-399) 03/08/24 04:05 MPV 10.4 fL (7.4-10.4) 03/08/24 04:05 Neut % (Auto) 73.3 % 03/07/24 11:08 Lymph % (Auto) 17.3 % 03/07/24 11:08 Taney % (Auto) 8.5 % 03/07/24 11:08 Eos % (Auto) 0.4 % 03/07/24 11:08 Baso % (Auto) 0.2 % 03/07/24 11:08 Neut # (Auto) 9.01 10^3/uL (1.8-7.7) H 03/07/24 11:08 Lymph # (Auto) 2.1 10^3/uL (0.8-4.8) 03/07/24 11:08 Taney # (Auto) 1.1 10^3/uL (0.2-0.9) H 03/07/24 11:08 Eos # (Auto) 0.1 10^3/uL (0.0-0.8) 03/07/24 11:08 Baso # (Auto) 0.0 10^3/uL (0.0-0.1) 03/07/24 11:08 Nucleated RBC % (auto) 0 % 03/07/24 11:08 Nucleated RBCs # 0.0 /100WBC 03/07/24 11:08 Blood Type B Positive 03/07/24 11:08 Rho(D) Type Rh positive 03/07/24 11:08 Antibody Screen Negative 03/07/24 11:08 Vitals Last Vital Signs Temp 98.3 F 03/08/24 02:00 Pulse 79 03/08/24 02:00 Resp 16 03/08/24 02:00 BP 105/68 03/08/24 02:00 Pulse Ox 99 03/07/24 22:08 O2 Del Method Room Air 03/07/24 22:08 Results Labs OB ([facility]): Obstetrics US 04/10/22 Blood Type B Positive 03/07/24 Antibody Screen Negative 03/07/24 Hct 32.9 % (36-47) L 03/08/24 Hgb 10.90 g/dL (11.27-16.99) L 03/08/24 Rho(D) Type Rh positive 03/07/24 Plt Count 205 10^3/cmm (157-399) 03/08/24 Hep Bs Antigen Non-reactive (Nonreactive) 12/19/21 Hep Bs Antibody 3.7 (11.5-1000) L 04/07/21 Hepatitis C Antibody Non-reactive (Nonreactive) 12/19/21 Rubella IgG Antibody 266.8 IU/mL (0.0-10.0) H 12/19/21 RPR Nonreactive (Nonreactive) 12/19/21 HIV 1&2 Ab & HIV 1 Ag Non-reactive (Non-Reactiv) 12/19/21 TSH 0.42 uIU/mL (0.27-4.20) 12/19/21 Cystic Fibrosis Screen Negative 12/19/21 Gest Glucose Tolerance 114 mg/dL 12/19/21 Uric Acid 3.5 mg/dL (2.4-5.7) 01/31/24 VZV IgG Antibody 507.10 index 12/19/21 Ser , Semi-Qnt 30371.00 mIU/mL 11/22/21 HCG, Qual Negative (Negative) 07/15/21 Urine Opiates Screen Negative ng/mL (Negative) 12/19/21 Ur Barbiturates Screen Negative ng/mL (Negative) 12/19/21 Ur Phencyclidine Scrn Negative ng/mL (Negative) 12/19/21 Ur Amphetamines Screen Negative ng/mL (Negative) 12/19/21 U Benzodiazepines Scrn Negative ng/mL (Negative) 12/19/21 Urine Cocaine Screen Negative ng/mL (Negative) 12/19/21 U Marijuana (THC) Screen Negative ng/mL (Negative) 12/19/21 Micro Urine Specimen 12/19/21 Discharge Plan Discharge Patient Disposition: Home Condition: Stable Prescriptions: New ibuprofen 800 mg Tablet 800 mg PO TID Qty: 45 0RF Vitamin 27 mg iron- 800 mcg Tablet 1 tab PO DAILY Qty: 90 3RF Discharge Orders: Discharge Order (Routine); Ordered 03/08/24 Ordered By: rTent Pitts Referrals: Trent Pitts MD [Primary Care Provider] - 6 Weeks Discharge Diet: Usual diet Discharge Activity: Limit activity as instructed Patient Instructions: Opioid Safety Discharge Attestations DEVELOPMENT TECHNICAL LEAD Time Spent in Discharge Care*: less than 30 min Coding Level of Care Code Acute Code for Chg Fwd Diagnoses 37 weeks gestation of Z3A.37 Spontaneous vaginal delivery O80
[2024-03-08] MEDS: lanolin oint 7 gm 1 APPLIC TOPICAL (16:21)
[2024-03-08 16:55] VITALS: BP 117/76; PULSE 103; RESP 17; TEMP 36.8
[2024-03-08 16:59] VITALS: BP 117/76; PULSE 103; RESP 17; TEMP 36.8
== END 2024-03-08 16:59 | disposition home or self-care (01) | DRG 807 ==
LOC: OPOB 11:54 → OBGYN 11:54
PROVIDERS: Admitting Provider Family Medicine; Family Provider Family Medicine; PCP Family Medicine; Visit Provider Family Medicine
DX: O80 Encounter for full-term uncomplicated delivery (principal); Z37.0 Single live birth; Z3A.37 37 weeks gestation of pregnancy
CPT/HCPCS: 36415; 51702; 59025; 59409; 85025; 85027; 86850; 86900; 99211; J2795; J7120; J9999

== ENCOUNTER → 2024-12-25 12:05 | Outpatient (BNVA) | payer MEDICAID, SELFPAY | PROVIDERS: Family Provider Family Medicine; PCP Family Medicine; Visit Provider Nurse Practitioner Psychiatric/Mental Health | DX: Z03.89 Encounter for observation for other suspected diseases and conditions ruled out (principal) | CPT/HCPCS: 80053; 80061; 83036 ==